=== PATIENT | male | born 1960 | race Caucasian/White ===

== ENCOUNTER 2019-11-25 10:49 | Day surgery (SDC) | payer BC ==
[~2019-11-25] VITALS: Ht 175.3 cm; Wt 99.8 kg
[~2019-11-25 10:49] MED LIST: IBUPROFEN800 MG PO; LEVOTHYROXINE175 MCG PO; VOLTAREN100 GM TOPICAL
[2019-11-25 13:40] VITALS: BP 147/100; Ht 175.3 cm; Wt 99.8 kg
[2019-11-25] MEDS ORDERED: KEFLEX500 MG PO (13:43)
--- NOTE | 2019-11-25 17:27 | NUR ---
1725 FL DIET SERVED.
--- NOTE | 2019-11-28 10:27 | OP ---
PATIENT NAME: SONY LAWSON MEDICAL RECORD: [id number] :62 LOCATION:[facility] ADMISSION DATE: SURGEON: CARLENE LEVIN MD DATE OF OPERATION: 11/25/2019 PREOPERATIVE DIAGNOSES: 1. Arthrofibrosis of the left knee. 2. Loose body of the left knee. POSTOPERATIVE DIAGNOSES: 1. Arthrofibrosis of the left knee. 2. Loose body of the left knee. 3. Medial meniscus tear. PROCEDURES: 1. Arthroscopic partial medial meniscectomy. 2. Arthroscopic loose body removal. 3. Manipulation of the knee. SURGEON: Carlene Levin MD CALL OR CONTACT CENTRE MANAGER: Rashel Schwartz APN INTRAOPERATIVE COMPLICATIONS: None. SUMMARY OF PATHOLOGIC FINDINGS: Initially, the patient had active range of motion of approximately -5 degrees to about 25 degrees. At the end of surgery, we got him from 0 to approximately 130, after multiple lysis of adhesions, removal of the loose body and 2 times manipulation, the patient was found to have a complex tear of the posterior horn of medial meniscus. 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 This was known. However, given the arthrofibrosis, the total knee arthroplasty cannot be performed until range of motion was re-established. OPERATION IN DETAIL: After obtaining the appropriate preoperative orthopedic surgery consent as well as anesthetic consultation, evaluation and clearance, the patient was brought to the operating room and placed on the table in supine position. After general laryngeal mask airway was administered, tourniquet was placed on the proximal aspect of the patient's left lower extremity. Left lower extremity was then prepped and draped in routine sterile fashion. At this point, the appropriate timeout was taken and agreed upon by all. The leg was elevated and exsanguinated, tourniquet inflated to 350 mmHg. Routine inferolateral portal was established followed by superomedial portal and inferomedial portal. Diagnostic arthroscopy showed multiple adhesions in the knee. The knee was forcibly flexed to approximately 80 degrees at this point to allow for arthroscopy. Multiple adhesions were taken down as well as synovectomy was performed. Medial and lateral gutter were both cleared. The patient had a large medial shelf plica that was also taken down. A loose body in the intercondylar notch was taken out using a resector. At this point, arthroscopy was completely removed and the knee was manipulated from approximately 0 degrees to approximately 120 degrees. Arthroscopy was then reestablished. Further arthroscopy was carried out and further lysis of adhesions were carried out. The medial side was now better visualized and the large meniscal tear was noted. This was taken out using the resector. Lateral OPERATIVE REPORT [id number] SONY LAWSON side was in relatively good overall condition. Having completed this, the knee was manipulated again with results of 0-30 at this time. At this point, arthroscopy portals were closed in routine interrupted fashion using 4-0 Prolene. The knee was insufflated with 80 mg Depo-Medrol and 10 cc of 0.25% Marcaine plain. Sterile dressings were applied. Tourniquet was deflated. The patient awakened and taken to the recovery room in stable condition. All final needle and sponge counts were correct. TRANSINT:[id number] Voice Confirmation ID: [id number] DOCUMENT ID: [id number] OLLIE SHORE, CARLENE SCHILLING at 1027 CC: [id number] DICTATION DATE: 11/25/19 1639 PROPERTY ACCOUNTANT: 11/25/192016 [facility] 11/25/19 [facility] [address] [place] [address]
== END 2019-11-25 18:30 | disposition home or self-care (01) ==
LOC: D.OPS 10:49 → D.PAN 16:00 → D.OPS 16:00
PROVIDERS: ATTEND Orthopaedic Surgery
DX: M24.662 Ankylosis, left knee (principal); S83.242A Other tear of medial meniscus, current injury, left knee, initial encounter; E03.9 Hypothyroidism, unspecified; X58.XXXA Exposure to other specified factors, initial encounter; M25.562 Pain in left knee

== ENCOUNTER → 2020-04-14 14:00 | Outpatient (CLI) | payer BC ==
[2019-11-25 13:40] VITALS: BMI 32.5
[~2020-04-14 14:00] MED LIST changes: +KEFLEX500 MG PO
== END | disposition home or self-care (01) ==
LOC: D.RAD 14:00
PROVIDERS: ATTEND Family Medicine
DX: I49.9 Cardiac arrhythmia, unspecified (principal)

== ENCOUNTER → 2020-05-04 07:38 | Outpatient (CLI) | payer BC ==
[2019-11-25 13:40] VITALS: BMI 32.5
== END | disposition home or self-care (01) ==
LOC: D.HCCARDIO 07:38
PROVIDERS: ATTEND Internal Medicine Cardiovascular Disease
DX: Z01.818 Encounter for other preprocedural examination (principal)